=== PATIENT | female | born 1960 | race Caucasian/White ===

== ENCOUNTER 2018-11-09 07:11 | Day surgery (SDC) | payer OTHER ==
[~2018-11-09] VITALS: Ht 170.2 cm; Wt 120.5 kg
[~2018-11-09 07:11] MED LIST: ASPI325EC PO; Acid Control20 MG PO; BUPR150T2 PO; CIPDEXSU LEFTEAR; HYDACE5325 PO; LEVO750 PO; NAPR500 PO; NEBI5 PO; PENVK500 PO; SULTRIDS PO; Simvastatin20 MG PO; TRAZ50 PO
== END 2018-11-09 09:08 | disposition home or self-care (01) ==
LOC: ORSCSDS 07:11
PROVIDERS: Internal Medicine Gastroenterology
PROC: 0DBM8ZX Excision of Descending Colon, Via Natural or Artificial Opening Endoscopic, Diagnostic (ICD-10-PCS; principal; 2018-11-09 08:30)
PROC: 0DBK8ZX Excision of Ascending Colon, Via Natural or Artificial Opening Endoscopic, Diagnostic (ICD-10-PCS; principal; 2018-11-09 08:30)
DX: Z12.11 Encounter for screening for malignant neoplasm of colon (principal); D12.2 Benign neoplasm of ascending colon; D12.4 Benign neoplasm of descending colon; K57.30 Diverticulosis of large intestine without perforation or abscess without bleeding; K64.8 Other hemorrhoids; F41.8 Other specified anxiety disorders; F31.9 Bipolar disorder, unspecified; E66.9 Obesity, unspecified; E11.9 Type 2 diabetes mellitus without complications; Z68.41 Body mass index [BMI] 40.0-44.9, adult; F17.210 Nicotine dependence, cigarettes, uncomplicated; I10 Essential (primary) hypertension; Z79.82 Long term (current) use of aspirin; Z79.899 Other long term (current) drug therapy
CPT/HCPCS: 82947; 88305; J0461; J2405; J2704; J7120

== ENCOUNTER → 2020-12-29 | Outpatient (CLI) | payer OTHER ==
[~2020-12-29] MED LIST changes: +LAMO100 PO; +PROP60 PO; +VENLAFAXINE HCL50 MG PO
[2020-12-30 08:10] LABS: HBSAG SCREEN Negative (Negative); HCV ANTIBODY <0.1 (0.0-0.9); HIV SCREEN 4TH GENERATION WRFX Non Reactive (Non Reactive)
== END | disposition home or self-care (01) ==
LOC: LAB 10:07 → LAB SHORT 10:07
PROVIDERS: Family Medicine
DX: Z20.9 Contact with and (suspected) exposure to unspecified communicable disease (principal)
CPT/HCPCS: 84460; 86317; 86803; 87340; 87389

== ENCOUNTER 2021-01-07 06:08 | Day surgery (SDC) | payer OTHER ==
[~2021-01-07] VITALS: Ht 170.2 cm; Wt 119.2 kg
--- NOTE | 2021-01-07 06:36 | NUR ---
[facility] in [facility] warming gown applied. History, Chart, Medications and Allergies reviewed before start of procedure.Lungs clear T/O to Auscultation. Patient confirms NPO status and agrees with scheduled surgery. Pre-Op teaching done. Pt verbalizes understanding. Patient States Post-Procedure ride home has been arranged.
--- NOTE | 2021-01-07 07:30 | NUR ---
01/07/21 0767 Stuart Banuelos History, Chart, Medications and Allergies reviewed before start of procedure.MONITOR INTACT WITH CONTINUOUS PULSE OXIMETRY AND INTERMITTENT BP.3-LEAD EKG REVIEWED WITH PHYSICIAN PRIOR TO START OF PROCEDURE.O2 VIA N/C INTACT THROUGHOUT SEDATION/PROCEDURE. See Anesthesia record.
--- NOTE | 2021-01-07 08:00 | NUR ---
RECIEVED PATIENTAND REPORT PATIENT WAKINGUP.
--- NOTE | 2021-01-07 08:30 | NUR ---
Discharge instructions reviewed with patient. Patient verbalizes understanding. Copy given to patient to take home. Patient States Post-Procedure ride home has been arranged. Discharged via wheelchair to private car for ride home.
== END 2021-01-07 23:31 | disposition home or self-care (01) ==
LOC: ORSCMMR 06:08 → ORD 07:30 → ORSCMMR 07:30
PROVIDERS: Internal Medicine Gastroenterology
PROC: 0DB68ZX Excision of Stomach, Via Natural or Artificial Opening Endoscopic, Diagnostic (ICD-10-PCS; principal; 2021-01-07 07:30)
PROC: 0DB98ZX Excision of Duodenum, Via Natural or Artificial Opening Endoscopic, Diagnostic (ICD-10-PCS; principal; 2021-01-07 07:30)
PROC: 0DB58ZX Excision of Esophagus, Via Natural or Artificial Opening Endoscopic, Diagnostic (ICD-10-PCS; principal; 2021-01-07 07:30)
PROC: 0DB48ZX Excision of Esophagogastric Junction, Via Natural or Artificial Opening Endoscopic, Diagnostic (ICD-10-PCS; principal; 2021-01-07 07:30)
DX: Z01.818 Encounter for other preprocedural examination (principal); G47.30 Sleep apnea, unspecified; F32.9 Major depressive disorder, single episode, unspecified; E66.01 Morbid (severe) obesity due to excess calories; Z68.41 Body mass index [BMI] 40.0-44.9, adult; Z87.891 Personal history of nicotine dependence; Z79.899 Other long term (current) drug therapy
CPT/HCPCS: 88305; 88312; 88342; A9270; J2405; J2704; J7120

== ENCOUNTER → 2021-05-27 | Outpatient (CLI) | payer OTHER ==
[2021-06-01 19:36] LABS: U Amphetamine Screen Not Detected; U Barbituate Screen Not Detected; U Benzodiazapine Screen Not Detected; U Buprenorphine Screen Not Detected; U Cannabinoids Screen Not Detected; U Cocaine Screen Not Detected; U Methadone Screen Not Detected; U Methamphetamine Screen Not Detected; U Opiates Screen Not Detected; U Oxycodone Screen Not Detected; U Phencyclidine Screen Not Detected; U Propoxyphene Screen Not Detected
== END | disposition home or self-care (01) ==
LOC: LAB 15:46 → LAB SHORT 15:46 → LAB FUT 05-19 14:35 → EDSTATUS 05-19 14:35
PROVIDERS: Surgery
DX: E66.01 Morbid (severe) obesity due to excess calories (principal)

== ENCOUNTER → 2022-01-12 | Outpatient (CLI) | payer OTHER | END | disposition home or self-care (01) | LOC: PLD 13:05 → LAB SHORT 13:05 | DX: N84.1 Polyp of cervix uteri (principal) | CPT/HCPCS: 88305 ==

== ENCOUNTER → 2022-02-09 | Outpatient (CLI) | payer OTHER ==
[2022-02-10 15:10] LABS: HPV 16 Negative (Negative); HPV 18 Negative (Negative); HPV OTHER HR TYPES Negative (Negative)
== END | disposition home or self-care (01) ==
LOC: LAB SHORT 10:47 → LAB 10:47
PROVIDERS: Advanced Practice Midwife
DX: Z01.419 Encounter for gynecological examination (general) (routine) without abnormal findings (principal)
CPT/HCPCS: 87624; G0123

== ENCOUNTER → 2023-05-10 | Outpatient (CLI) | payer OTHER | LOC: LAB SHORT 14:35 → LAB 14:35 | DX: N39.0 Urinary tract infection, site not specified (principal) | CPT/HCPCS: 87086 ==

== ENCOUNTER 2024-11-27 10:51 | Day surgery (SDC) | payer MEDICARE, OTHER ==
[~2024-11-27] VITALS: Ht 170.2 cm; Wt 108.1 kg
[2024-11-27] MEDS ORDERED: FAMO20 (11:12)
[2024-11-27] MEDS ORDERED: ALBU90OI (11:12)
[2024-11-27] MEDS ORDERED: FLUTICASONE-SA1 EAC9 (11:13)
[2024-11-27] MEDS ORDERED: LINZESS290 MCG (11:13)
[2024-11-27] MEDS ORDERED: MAGNESIUM OXID500 MG (11:13)
[2024-11-27] MEDS ORDERED: ESTRADIOL (11:15)
[2024-11-27] MEDS ORDERED: PROMETRIUM200 M1 (11:15)
[2024-11-27 12:20] VITALS: BP 126/98
--- NOTE | 2024-11-27 13:26 | NUR ---
11/27/24 1326 Ryan Sánchez STAFF EXPERIENCED DIFFICULTY STARTING IV. MULTIPLE MA'S AND RN'S MADE 7 ATTEMPTS TO START AN IV. PT REFUSED FURTHER ATTEMPTS. DR. AGUIRRE AND DR. TORRES NOTIFIED.
== END 2024-11-27 12:40 | disposition home or self-care (01) ==
LOC: ORSCSDS 10:51
DX: Z12.11 Encounter for screening for malignant neoplasm of colon (principal); Z86.0100 Personal history of colon polyps, unspecified; Z53.9 Procedure and treatment not carried out, unspecified reason
CPT/HCPCS: J2704; J7120